=== PATIENT | male | born 1975 | race Caucasian/White ===

== ENCOUNTER → 2021-08-20 | Day surgery (SDC) | payer BC ==
[~2021-08-20] VITALS: Ht 175.3 cm; Wt 72.6 kg
[~2021-08-20] MED LIST: DAILY VITAMIN1 EAC6 PO; HYDROCODON-ACE1 EAC7 PO; VITAMIN C500 M2 PO; VITAMIN D375 MCG PO
[2021-08-20 08:30] VITALS: BP 96/54
[2021-08-20 12:24] VITALS: BP 96/54
--- NOTE | 2021-08-22 11:31 | O ---
[facility] [place] [address] OPERATIVE REPORT Name: JANEL PALACIO Room #: REG [facility]#: [id number] Admission: 08/20/21 Attend Phys: Herb Maddox MD Discharge: Date of : 77 Report #: [id number] THIS REPORT FOR: cc: Karan Chavira MD,Karan Maddox,Hebr Crum MD ~ cc: Chirag Chavira MD DATE OF SERVICE: 08/20/2021 PREOPERATIVE DIAGNOSIS: Large right inguinal hernia. POSTOPERATIVE DIAGNOSIS: Large right indirect inguinal hernia. SURGEON: Herb Maddox MD PROCEDURE PERFORMED: Laparoscopic properitoneal repair of a large right indirect inguinal hernia with mesh. ANESTHESIA: General. COMPLICATIONS: None. ESTIMATED BLOOD LOSS: 10 mL. DESCRIPTION OF PROCEDURE: With the patient under general anesthesia, IV antibiotic was administered. A Joseph catheter was placed. Abdomen was then prepped and draped in sterile fashion. 0.25% Marcaine was used to anesthetize the skin and a 2 cm transverse incision was made adjacent to the umbilicus on the right side. The anterior rectus fascia was identified. This was then opened under visualization. The muscle was spread. The space between the muscle and the posterior fascia was bluntly dissected. A balloon trocar was placed in the space. The balloon was inflated. Under visualization, a 5 mm trocar was placed about an inch and half below the umbilicus at the midline. With cautery and blunt dissection. The rest of the properitoneal space was able to be opened up without difficulty. The opening carried down to the pubic bone. The lateral dissection was carried out laterally to the inferior epigastric artery. Second 5 mm trocar was placed here. No direct defect identified. The patient had a large indirect hernia sac. The hernia sac was dissected free and the hernia sac was then pulled out of the internal ring and brought back in the properitoneal space. Again, the sac was quite large. Hemostasis was obtained with cautery. The sac was completely free from the vas and also from rest of the cord structure. No significant cord lipoma identified. The internal ring is about a centimeter half in size. A large right 3DMax lightweight mesh was then placed. The mesh was brought in through the 11 mm trocar and the mesh was opened up. I did shift the mesh slightly further cephalad laterally to get a [facility] [address] [place] [address] OPERATIVE REPORT Name: JANEL PALACIO Room #: REG [facility]..#: [id number] Admission: 08/20/21 Attend Phys: Herb Maddox MD Discharge: Date of : 77 Report #: [id number] better coverage of the internal ring. The medial part of the mesh does come to the midline. The mesh was tacked to the abdominal wall with SorbaFix in the superior lateral part of the mesh. The medial inferior part of the mesh was tacked to the Joe's ligament above the pubic bone. Superomedially, the mesh was tacked to the rectus muscle. No tacks was placed inferior lateral due to the nerves in this area. The mesh is well stabilized. The CO2 was then evacuated. The patient did seem to have intraperitoneal air at the level of the umbilical incision. The posterior fascia was grasped and opened, I could not definitely see the peritoneum. Because of the area still being distended, I placed a 5 mm trocar under visualization into the abdominal cavity. There was quite a bit of retroperitoneal air in this area. Review of the abdomen did not show any harm to the organs inside. Colon visualized, small bowel visualized. CO2 was then evacuated from the abdominal cavity through this 5 mm trocar. Trocars were removed. Anterior fascia at the site of the incision was closed with 0 Vicryl [id number] x1 and interrupted 0 Vicryl. Skin was irrigated. Skin was then closed with 5-0 PDS. Steri-Strip, Band-Aids applied. The patient tolerated the procedure well. The patient was taken to recovery room and Joseph catheter was removed at the end of the procedure. <ELECTRONICALLY SIGNED> By: Herb Maddox MD 08/22/21 1131 [id number] Herb Maddox MD /nt
== END | disposition home or self-care (01) ==
LOC: OR 07-25 09:25
PROVIDERS: ATTEND Surgery
DX: K40.90 Unilateral inguinal hernia, without obstruction or gangrene, not specified as recurrent (principal); J45.909 Unspecified asthma, uncomplicated; Z98.890 Other specified postprocedural states; Z20.822 Contact with and (suspected) exposure to COVID-19; Z79.899 Other long term (current) drug therapy; Z87.891 Personal history of nicotine dependence
CPT/HCPCS: 50010; 50101; 50411; 50455; 50507; 50555; 50848; 52265; 53065; 53307; 56525; 56526; 58574; 62110; 62900; 70005